=== PATIENT | female | born 1940 | race African-American/Black ===

== ENCOUNTER 2018-02-10 10:02 | Inpatient (IN) | payer MEDICARE, MEDICAID ==
[2018-02-10] VITALS (43 sets, daily range): BP systolic 83–122; BP diastolic 44–76
[~2018-02-10] VITALS: Ht 162.6 cm; Wt 81.6 kg
[~2018-02-10 10:02] MED LIST: CHOL100053 PO; DEXL60CA3 PO; FAMO20TA8 PO; FLUC100T42 PO; FOLI-43 PO; FURO20TA4 PO; LEVPEN SQ; LEVVL SQ; METF500T6 PO; OMEG100T PO; ROSU10TA PO
[2018-02-10] MEDS ORDERED: NORMAL SALINE 0.9% 10 ML SYR ONE (10:04)
[2018-02-10] MEDS ORDERED: VECURONIUM BROMIDE 10 MG/VIAL IV ONE ×2 (10:04→10:30)
[2018-02-10] MEDS ORDERED: ETOMIDATE 2MG/ML 10ML VIAL IV ONE ×2 (10:04→10:30)
[2018-02-10 10:20] LABS: BG BASE EXCESS 3.6 mmol/L (-2.0-2.0); BG CARBOXYHEMOGLOBIN 0.3 % (0.5-1.5); BG DEOXYHEMOGLOBIN 1.2 % (0.0-5.0); BG FRACTION INSPIRED OXYGEN 100; BG HCO3 ACT 26.1 mmol/L (22.0-26.0); BG METHEMOGLOBIN 0.2 % (0.0-1.5); BG OXYGEN SATURATION 98.8 % (92.0-98.5); BG OXYHEMOGLOBIN 98.3 % (94.0-97.0); BG PCO2 32.2 mmHg (35.0-45.0); BG PH 7.526 (7.350-7.450); BG PO2 173.9 mmHg (75.0-100.0); BG SAMPLE SITE RIGHT BRACHIAL; BG TIDAL VOLUME(mL) 500 mL; BG TOTAL HEMOGLOBIN 11.9 g/dL (12.0-18.0); BG VENT MODE VENT - A/C; BG VENT RATE 16 set
[2018-02-10] MEDS ORDERED: SODIUM CHLORIDE 0.9% 1,000 ML IV ONE (10:26)
[2018-02-10 10:29] LABS: HEMATOCRIT. 29.9 % (36.0-48.0); HEMOGLOBIN. 8.7 g/dL (12.0-16.0); MEAN CORPUSCULAR HEMOGLOBIN 25.5 pg (28.0-32.0); MEAN CORPUSCULAR VOLUME 87.6 fL (81.0-99.0); MEAN PLATELET VOLUME 10.7 fl (7.4-10.4); PLATELET 196 x1000/uL (130-400); RED BLOOD CELL COUNT 3.41 mill/uL (4.2-5.4); RED CELL DISTRIBUTION WIDTH 21.7 % (11.6-14.6)
[2018-02-10] MEDS ORDERED: PROPOFOL 10MG/ML 100ML 100 ML IV ONE (10:30)
[2018-02-10] MEDS ORDERED: NOREPINEPHRINE 4 MG in DEXT 5% WATER 246 ML IV ONE ×4 (10:30)
[2018-02-10] MEDS ORDERED: ASPIRIN 300MG SUPP PR ONE (10:30)
[2018-02-10] MEDS ORDERED: LEVOFLOXACIN 500MG PREMIX 100 ML IV ONE (10:30)
[2018-02-10] MEDS ORDERED: CLINDAMYCIN 600 MG in DEXTROSE 5% WATER 50 ML IV ONE (10:30)
[2018-02-10] MEDS ORDERED: VANCOMYCIN 1 G PREMIX 200 ML IV ONE (10:30)
[2018-02-10 10:38] LABS: INR 1.5; PROTHROMBIN TIME 14.9 sec (9.1-11.1)
[2018-02-10 10:39] LABS: CHLORIDE 133 mEq/L (98-107)
[2018-02-10] MEDS ORDERED: ACETAMINOPHEN 650MG SUPP PR STA (10:40)
[2018-02-10 10:43] LABS: ETHANOL BLOOD < 10 mg/dL
[2018-02-10 10:44] LABS: PHOSPHORUS 3.1 mg/dL (2.5-4.9)
[2018-02-10] MEDS ORDERED: SODIUM CHLORIDE 0.9% 1000ML BAG (SEPSIS BOLUS) IV ONE (10:45)
[2018-02-10 10:49] LABS: AMMONIA 25 uMol/L (<32)
[2018-02-10 10:55] LABS: CLARITY URINE TURBID (CLEAR); COLOR URINE DARK YELLOW (YELLOW); KETONES URINE NEGATIVE (NEGATIVE); LEUKOCYTE ESTERASE URINE TRACE (NEGATIVE); NITRITE URINE NEGATIVE (NEGATIVE); OCCULT BLOOD URINE NEGATIVE (NEGATIVE); PROTEIN URINE 1+ (NEGATIVE); SPECIFIC GRAVITY URINE 1.023 (1.005-1.030)
[2018-02-10 11:12] LABS: NUCLEATED RED BLOOD CELLS 1 /100 WBC; PLATELET ESTIMATE NORMAL
[2018-02-10] MEDS ORDERED: INSULIN REGULAR (HUMULIN R) 300UNITS/3ML IV ONE (11:15)
[2018-02-10] MEDS ORDERED: INSULIN REGULAR (DRIP) 100 UNITS in SODIUM CHLORIDE 0.9% 100 ML IV ONE ×2 (11:15→11:45)
[2018-02-10 11:36] LABS: *BENZODIAZEPINES SCREEN URINE NEGATIVE (NEGATIVE)
[2018-02-10 11:37] LABS: *COCAINE SCREEN URINE NEGATIVE (NEGATIVE); CANNABINOID URINE SCREEN NEGATIVE (NEGATIVE); METHADONE URINE SCREEN NEGATIVE (NEGATIVE); OPIATES URINE SCREEN NEGATIVE (NEGATIVE); PHENCYCLIDINE URINE SCREEN NEGATIVE (NEGATIVE)
[2018-02-10 11:38] LABS: *AMPHETAMINES SCREEN URINE NEGATIVE (NEGATIVE)
[2018-02-10 11:42] LABS: *BARBITURATES SCREEN URINE NEGATIVE (NEGATIVE)
[2018-02-10] MEDS ORDERED: INSULIN LISPRO 100 UNITS/ML SUBCUT SCH (13:20)
[2018-02-10] MEDS: PROPOFOL 10MG/ML 100ML 100 ML IV PRN (14:45)
[2018-02-10] MEDS ORDERED: BLOOD SUGAR DIAGNOSTIC STRIP TEST SCH ×2 (16:30→17:00)
[2018-02-10] MEDS: DEXT 5% WATER + KCL 20MEQ/L 1,000 ML IV SCH (16:45)
[2018-02-10] MEDS: AZTREONAM 2 GM in DEXT 5% WATER 100 ML IV SCH (16:45)
[2018-02-10] MEDS ORDERED: CLINDAMYCIN 600 MG in DEXTROSE 5% WATER 50 ML IV SCH (18:00)
[2018-02-10] MEDS ORDERED: VANCOMYCIN 1 G PREMIX 200 ML IV NR (18:30)
[2018-02-10] MEDS: BLOOD SUGAR DIAGNOSTIC STRIP TEST SCH (18:49)
[2018-02-10] MEDS: NOREPINEPHRINE 8 MG in DEXT 5% WATER 492 ML IV PRN (18:51)
[2018-02-10] MEDS: INSULIN LISPRO 100 UNITS/ML SUBCUT SCH (18:57)
[2018-02-10] MEDS: METRONIDAZOLE 500 MG PREMIX 100 ML IV SCH (20:51)
[2018-02-10] MEDS ORDERED: FAMOTIDINE 20MG TABLET PO SCH (21:00)
[2018-02-10] MEDS ORDERED: INSULIN GLARGINE UD 100 UNITS/ML SYR SUBCUT SCH (22:00)
[2018-02-11] VITALS (96 sets, daily range): BP systolic 66–169; BP diastolic 39–90
[2018-02-11] MEDS: PROPOFOL 10MG/ML 100ML 100 ML IV PRN ×2 (00:19→12:49)
[2018-02-11] MEDS: INSULIN LISPRO 100 UNITS/ML SUBCUT SCH ×4 (00:31→17:43)
[2018-02-11] MEDS: BLOOD SUGAR DIAGNOSTIC STRIP TEST SCH ×4 (00:31→17:40)
[2018-02-11] MEDS: INSULIN GLARGINE UD 100 UNITS/ML SYR SUBCUT SCH ×3 (00:32→21:55)
[2018-02-11] MEDS: METRONIDAZOLE 500 MG PREMIX 100 ML IV SCH ×3 (03:49→20:08)
[2018-02-11] MEDS: AZTREONAM 2 GM in DEXT 5% WATER 100 ML IV SCH ×2 (03:49→17:54)
[2018-02-11] MEDS: DEXT 5% WATER + KCL 20MEQ/L 1,000 ML IV SCH ×2 (03:54→04:03)
[2018-02-11 05:58] LABS: HEMATOCRIT. 29.6 % (36.0-48.0); HEMOGLOBIN. 8.8 g/dL (12.0-16.0); MEAN CORPUSCULAR HEMOGLOBIN 25.4 pg (28.0-32.0); MEAN CORPUSCULAR VOLUME 85.7 fL (81.0-99.0); MEAN PLATELET VOLUME 10.4 fl (7.4-10.4); PLATELET 176 x1000/uL (130-400); RED BLOOD CELL COUNT 3.46 mill/uL (4.2-5.4)
[2018-02-11 06:10] LABS: CHLORIDE 124 mEq/L (98-107)
[2018-02-11 06:21] LABS: LDL CHOLESTEROL 45 mg/dL (5-100)
[2018-02-11 06:23] LABS: CREATINE KINASE 35 IU/L (26-192); CREATINE KINASE MB FRACTION 1.8 ng/mL (0.5-3.6); HDL CHOLESTEROL 21 mg/dL (40-59)
[2018-02-11] MEDS: NOREPINEPHRINE 8 MG in DEXT 5% WATER 492 ML IV PRN (06:50)
[2018-02-11 07:56] LABS: BG CARBOXYHEMOGLOBIN 0.4 % (0.5-1.5); BG DEOXYHEMOGLOBIN 3.3 % (0.0-5.0); BG HCO3 ACT 23.3 mmol/L (22.0-26.0); BG METHEMOGLOBIN 0.3 % (0.0-1.5); BG OXYGEN SATURATION 96.7 % (92.0-98.5); BG PCO2 36.5 mmHg (35.0-45.0); BG PH 7.422 (7.350-7.450); BG PO2 93.2 mmHg (75.0-100.0); BG SAMPLE SITE RIGHT RADIAL; BG TIDAL VOLUME(mL) 450 mL; BG TOTAL HEMOGLOBIN 8.6 g/dL (12.0-18.0); BG VENT MODE VENT - A/C; BG VENT RATE 12 set
[2018-02-11] MEDS ORDERED: POTASSIUM CHLORIDE 20MEQ/PACKET PEG NR (08:45)
[2018-02-11] MEDS: PANTOPRAZOLE SODIUM 40 MG/VIAL IV SCH (08:50)
[2018-02-11] MEDS ORDERED: PANTOPRAZOLE SODIUM 40 MG/VIAL IV SCH (09:00)
[2018-02-11 09:07] LABS: NUCLEATED RED BLOOD CELLS 1 /100 WBC; PLATELET ESTIMATE NORMAL
[2018-02-11] MEDS ORDERED: METRONIDAZOLE 500 MG PREMIX 100 ML IV SCH (09:30)
[2018-02-11] MEDS: VANCOMYCIN 1 G PREMIX 200 ML IV SCH (12:47)
[2018-02-11] MEDS ORDERED: IPRATROPIUM/ALBUTEROL 0.5-3(2.5)MG/3ML NEB HHN PRN (14:00)
[2018-02-11] MEDS ORDERED: PROPOFOL 10MG/ML 100ML 100 ML IV PRN (14:15)
[2018-02-11] MEDS: IPRATROPIUM/ALBUTEROL 0.5-3(2.5)MG/3ML NEB HHN SCH ×2 (15:14→20:15)
[2018-02-11] MEDS: POTASSIUM CHLORIDE 20MEQ/PACKET PEG SCH (17:54)
[2018-02-12] VITALS (90 sets, daily range): BP systolic 83–155; BP diastolic 47–94
[2018-02-12] MEDS: IPRATROPIUM/ALBUTEROL 0.5-3(2.5)MG/3ML NEB HHN SCH ×7 (00:09→23:43)
[2018-02-12] MEDS: INSULIN LISPRO 100 UNITS/ML SUBCUT SCH ×4 (00:28→18:05)
[2018-02-12] MEDS: BLOOD SUGAR DIAGNOSTIC STRIP TEST SCH ×4 (00:29→18:04)
[2018-02-12] MEDS: NOREPINEPHRINE 8 MG in DEXT 5% WATER 492 ML IV PRN ×2 (00:33→17:44)
[2018-02-12] MEDS: DEXT 5% WATER + KCL 20MEQ/L 1,000 ML IV SCH (03:03)
[2018-02-12] MEDS: METRONIDAZOLE 500 MG PREMIX 100 ML IV SCH ×2 (03:04→12:41)
[2018-02-12] MEDS: AZTREONAM 2 GM in DEXT 5% WATER 100 ML IV SCH ×2 (05:01→17:39)
[2018-02-12 05:53] LABS: HEMATOCRIT. 28.7 % (36.0-48.0); HEMOGLOBIN. 8.8 g/dL (12.0-16.0); MEAN CORPUSCULAR HEMOGLOBIN 25.6 pg (28.0-32.0); MEAN CORPUSCULAR VOLUME 83.3 fL (81.0-99.0); MEAN PLATELET VOLUME 9.8 fl (7.4-10.4); PLATELET 173 x1000/uL (130-400); RED BLOOD CELL COUNT 3.44 mill/uL (4.2-5.4); RED CELL DISTRIBUTION WIDTH 20.4 % (11.6-14.6)
[2018-02-12 06:00] LABS: CHLORIDE 120 mEq/L (98-107)
[2018-02-12] MEDS: VANCOMYCIN 1 G PREMIX 200 ML IV SCH (06:38)
[2018-02-12] MEDS: POTASSIUM CHLORIDE 20MEQ/PACKET PEG SCH (06:39)
[2018-02-12] MEDS ORDERED: LACTULOSE 20G/30ML UDC PO SCH (07:45)
[2018-02-12 07:56] LABS: PLATELET ESTIMATE NORMAL
[2018-02-12] MEDS: PANTOPRAZOLE SODIUM 40 MG/VIAL IV SCH (08:17)
[2018-02-12] MEDS: ACETAMINOPHEN 650MG/20.3ML UDC PO PRN (08:18)
[2018-02-12] MEDS: MIDODRINE HCL 2.5MG TABLET GT SCH ×3 (08:40→17:39)
[2018-02-12 08:50] LABS: BG BASE EXCESS 0.1 mmol/L (-2.0-2.0); BG CARBOXYHEMOGLOBIN 0.3 % (0.5-1.5); BG DEOXYHEMOGLOBIN 2.5 % (0.0-5.0); BG HCO3 ACT 23.7 mmol/L (22.0-26.0); BG METHEMOGLOBIN 0.3 % (0.0-1.5); BG OXYGEN SATURATION 97.5 % (92.0-98.5); BG OXYHEMOGLOBIN 96.9 % (94.0-97.0); BG PCO2 34.1 mmHg (35.0-45.0); BG PO2 92.2 mmHg (75.0-100.0); BG SAMPLE SITE RIGHT RADIAL; BG TIDAL VOLUME(mL) 450 mL; BG VENT MODE VENT - A/C; BG VENT RATE 12 set
[2018-02-12] MEDS: INSULIN GLARGINE UD 100 UNITS/ML SYR SUBCUT SCH ×2 (10:00→11:00)
[2018-02-12] MEDS ORDERED: METOCLOPRAMIDE HCL 10MG/2ML VIAL IV SCH (14:00)
[2018-02-12] MEDS ORDERED: NA PHOS,M-B/NA PHOS,DI-BA ENEMA 118ML PR NR (17:15)
[2018-02-12] MEDS: DEXTROSE 5% WATER 1,000 ML IV SCH (17:44)
[2018-02-13] VITALS (60 sets, daily range): BP systolic 78–134; BP diastolic 45–78
[2018-02-13] MEDS: BLOOD SUGAR DIAGNOSTIC STRIP TEST SCH ×4 (00:19→18:45)
[2018-02-13] MEDS: VANCOMYCIN 1 G PREMIX 200 ML IV SCH ×2 (00:19→20:13)
[2018-02-13] MEDS: METRONIDAZOLE 500 MG PREMIX 100 ML IV SCH ×4 (00:19→22:11)
[2018-02-13] MEDS: INSULIN GLARGINE UD 100 UNITS/ML SYR SUBCUT SCH ×3 (00:21→22:15)
[2018-02-13] MEDS: INSULIN LISPRO 100 UNITS/ML SUBCUT SCH ×4 (00:22→18:49)
[2018-02-13] MEDS: IPRATROPIUM/ALBUTEROL 0.5-3(2.5)MG/3ML NEB HHN SCH ×5 (04:19→20:13)
[2018-02-13 05:38] LABS: HEMATOCRIT. 28.3 % (36.0-48.0); HEMOGLOBIN. 8.6 g/dL (12.0-16.0); MEAN CORPUSCULAR HEMOGLOBIN 25.6 pg (28.0-32.0); MEAN CORPUSCULAR VOLUME 84.1 fL (81.0-99.0); MEAN PLATELET VOLUME 10.8 fl (7.4-10.4); PLATELET 165 x1000/uL (130-400); RED BLOOD CELL COUNT 3.37 mill/uL (4.2-5.4); RED CELL DISTRIBUTION WIDTH 20.9 % (11.6-14.6)
[2018-02-13 05:54] LABS: CHLORIDE 113 mEq/L (98-107)
[2018-02-13] MEDS: DEXTROSE 5% WATER 1,000 ML IV SCH (06:16)
[2018-02-13] MEDS: AZTREONAM 2 GM in DEXT 5% WATER 100 ML IV SCH ×2 (06:58→17:45)
[2018-02-13 07:08] LABS: NUCLEATED RED BLOOD CELLS 2 /100 WBC; PLATELET ESTIMATE NORMAL
[2018-02-13 08:38] LABS: BG BASE EXCESS -1.7 mmol/L (-2.0-2.0); BG CARBOXYHEMOGLOBIN 0.1 % (0.5-1.5); BG DEOXYHEMOGLOBIN 4.1 % (0.0-5.0); BG FRACTION INSPIRED OXYGEN 40; BG HCO3 ACT 22.3 mmol/L (22.0-26.0); BG METHEMOGLOBIN 0.2 % (0.0-1.5); BG OXYGEN SATURATION 95.9 % (92.0-98.5); BG OXYHEMOGLOBIN 95.6 % (94.0-97.0); BG PCO2 34.3 mmHg (35.0-45.0); BG PO2 86.7 mmHg (75.0-100.0); BG SAMPLE SITE RIGHT RADIAL; BG TIDAL VOLUME(mL) 450 mL; BG TOTAL HEMOGLOBIN 9.4 g/dL (12.0-18.0); BG VENT MODE VENT - A/C; BG VENT RATE 12 set
[2018-02-13] MEDS: PANTOPRAZOLE SODIUM 40 MG/VIAL IV SCH (09:24)
[2018-02-13] MEDS: MIDODRINE HCL 2.5MG TABLET GT SCH ×3 (09:24→18:26)
[2018-02-13] MEDS: ACETAMINOPHEN 650MG/20.3ML UDC PO PRN (09:25)
[2018-02-13] MEDS ORDERED: MIDODRINE HCL 2.5MG TABLET PO NR (14:45)
[2018-02-13] MEDS: SODIUM CHLORIDE 0.9% 200 ML IV NR ×2 (14:45→14:58)
[2018-02-13] MEDS: ACETYLCYSTEINE 100MG/ML 10% VIAL 4ML INH SCH (14:57)
[2018-02-14] VITALS (33 sets, daily range): BP systolic 80–130; BP diastolic 45–74
[2018-02-14] MEDS: ACETYLCYSTEINE 100MG/ML 10% VIAL 4ML INH SCH ×2 (00:14→07:27)
[2018-02-14] MEDS: IPRATROPIUM/ALBUTEROL 0.5-3(2.5)MG/3ML NEB HHN SCH ×6 (00:14→20:16)
[2018-02-14] MEDS: SODIUM CHLORIDE 0.9% 200 ML IV NR (00:50)
[2018-02-14] MEDS: BLOOD SUGAR DIAGNOSTIC STRIP TEST SCH ×5 (00:50→23:17)
[2018-02-14] MEDS: AZTREONAM 2 GM in DEXT 5% WATER 100 ML IV SCH ×2 (03:38→15:38)
[2018-02-14] MEDS: METRONIDAZOLE 500 MG PREMIX 100 ML IV SCH ×3 (03:40→22:10)
[2018-02-14] MEDS: INSULIN LISPRO 100 UNITS/ML SUBCUT SCH ×5 (05:23→23:17)
[2018-02-14 06:51] LABS: HEMOGLOBIN. 8.5 g/dL (12.0-16.0); MEAN CORPUSCULAR HEMOGLOBIN 26.2 pg (28.0-32.0); MEAN CORPUSCULAR VOLUME 83.4 fL (81.0-99.0); MEAN PLATELET VOLUME 10.2 fl (7.4-10.4); PLATELET 177 x1000/uL (130-400); RED BLOOD CELL COUNT 3.23 mill/uL (4.2-5.4)
[2018-02-14 06:53] LABS: CHLORIDE 112 mEq/L (98-107)
[2018-02-14 07:05] LABS: PHOSPHORUS 1.9 mg/dL (2.5-4.9)
[2018-02-14 07:23] LABS: BG BASE EXCESS -0.5 mmol/L (-2.0-2.0); BG CARBOXYHEMOGLOBIN 0.3 % (0.5-1.5); BG DEOXYHEMOGLOBIN 3.1 % (0.0-5.0); BG FRACTION INSPIRED OXYGEN 40; BG HCO3 ACT 23.2 mmol/L (22.0-26.0); BG METHEMOGLOBIN 0.2 % (0.0-1.5); BG OXYGEN SATURATION 96.9 % (92.0-98.5); BG OXYHEMOGLOBIN 96.4 % (94.0-97.0); BG PCO2 33.9 mmHg (35.0-45.0); BG PH 7.453 (7.350-7.450); BG PO2 85.9 mmHg (75.0-100.0); BG SAMPLE SITE RIGHT RADIAL; BG TIDAL VOLUME(mL) 450 mL; BG TOTAL HEMOGLOBIN 8.8 g/dL (12.0-18.0); BG VENT MODE VENT - A/C; BG VENT RATE 12 set
[2018-02-14] MEDS: PANTOPRAZOLE SODIUM 40 MG/VIAL IV SCH (08:34)
[2018-02-14] MEDS: MIDODRINE HCL 2.5MG TABLET GT SCH ×3 (08:35→16:11)
[2018-02-14] MEDS ORDERED: POTASSIUM PHOS,M-BASIC-D-BASIC 15 MMOL in DEXT 5% WATER 245 ML IV SCH (09:00)
[2018-02-14 09:19] LABS: PLATELET ESTIMATE NORMAL
[2018-02-14] MEDS: INSULIN GLARGINE UD 100 UNITS/ML SYR SUBCUT SCH ×2 (11:34→23:24)
[2018-02-14] MEDS ORDERED: ALPRAZOLAM 0.25 MG TABLET PO PRN (12:00)
[2018-02-14] MEDS: VANCOMYCIN 1 G PREMIX 200 ML IV SCH (13:05)
[2018-02-15] VITALS (40 sets, daily range): BP systolic 91–140; BP diastolic 51–75
[2018-02-15] MEDS: IPRATROPIUM/ALBUTEROL 0.5-3(2.5)MG/3ML NEB HHN SCH ×5 (00:23→20:18)
[2018-02-15] MEDS: AZTREONAM 2 GM in DEXT 5% WATER 100 ML IV SCH ×2 (04:56→16:49)
[2018-02-15] MEDS: METRONIDAZOLE 500 MG PREMIX 100 ML IV SCH ×3 (04:56→20:33)
[2018-02-15] MEDS: BLOOD SUGAR DIAGNOSTIC STRIP TEST SCH ×3 (05:11→17:17)
[2018-02-15] MEDS: INSULIN LISPRO 100 UNITS/ML SUBCUT SCH ×3 (05:25→17:17)
[2018-02-15] MEDS: VANCOMYCIN 1 G PREMIX 200 ML IV SCH (05:32)
[2018-02-15 05:50] LABS: BASOPHILS % 0.3 % (0.0-2.0); EOSINOPHILS % 0.9 % (0.0-5.0); HEMATOCRIT. 26.6 % (36.0-48.0); HEMOGLOBIN. 8.3 g/dL (12.0-16.0); LYMPHOCYTES % 9.6 % (20.0-50.0); MEAN CORPUSCULAR HEMOGLOBIN 25.8 pg (28.0-32.0); MEAN CORPUSCULAR VOLUME 82.9 fL (81.0-99.0); MEAN PLATELET VOLUME 9.6 fl (7.4-10.4); MONOCYTES % 2.6 % (2.0-8.0); NEUTROPHILS % 86.6 % (40.0-76.0); PLATELET 188 x1000/uL (130-400); RED CELL DISTRIBUTION WIDTH 20.1 % (11.6-14.6)
[2018-02-15 06:01] LABS: CHLORIDE 111 mEq/L (98-107)
[2018-02-15 06:09] LABS: PHOSPHORUS 2.7 mg/dL (2.5-4.9)
[2018-02-15 09:14] LABS: BG BASE EXCESS -0.9 mmol/L (-2.0-2.0); BG CARBOXYHEMOGLOBIN 0.3 % (0.5-1.5); BG DEOXYHEMOGLOBIN 2.1 % (0.0-5.0); BG FRACTION INSPIRED OXYGEN 40; BG METHEMOGLOBIN 0.3 % (0.0-1.5); BG OXYGEN SATURATION 97.9 % (92.0-98.5); BG OXYHEMOGLOBIN 97.3 % (94.0-97.0); BG PCO2 34.7 mmHg (35.0-45.0); BG PH 7.439 (7.350-7.450); BG PO2 107.4 mmHg (75.0-100.0); BG PRESSURE SUPPORT 12; BG SAMPLE SITE RIGHT RADIAL; BG TOTAL HEMOGLOBIN 8.9 g/dL (12.0-18.0); BG VENT MODE VENT - CPAP
[2018-02-15] MEDS: PANTOPRAZOLE SODIUM 40 MG/VIAL IV SCH (09:26)
[2018-02-15] MEDS: INSULIN GLARGINE UD 100 UNITS/ML SYR SUBCUT SCH ×2 (09:27→21:46)
[2018-02-15] MEDS: MIDODRINE HCL 2.5MG TABLET GT SCH ×3 (09:30→16:49)
[2018-02-15] MEDS: ACETAMINOPHEN 650MG/20.3ML UDC PO PRN (12:57)
[2018-02-15] MEDS ORDERED: LIDOCAINE HCL 1% 10 MG/ML 10ML VIAL ONE (14:49)
[2018-02-15] MEDS: DEXTROSE 50% WATER 50ML SYRINGE IV PRN (16:59)
[2018-02-16] VITALS (35 sets, daily range): BP systolic 93–132; BP diastolic 51–83
[2018-02-16] MEDS: IPRATROPIUM/ALBUTEROL 0.5-3(2.5)MG/3ML NEB HHN SCH ×6 (00:10→21:23)
[2018-02-16] MEDS: METRONIDAZOLE 500 MG PREMIX 100 ML IV SCH ×3 (03:51→20:50)
[2018-02-16] MEDS: AZTREONAM 2 GM in DEXT 5% WATER 100 ML IV SCH ×2 (05:23→17:03)
[2018-02-16 05:39] LABS: BASOPHILS % 0.3 % (0.0-2.0); EOSINOPHILS % 0.9 % (0.0-5.0); HEMATOCRIT. 27.7 % (36.0-48.0); HEMOGLOBIN. 8.6 g/dL (12.0-16.0); LYMPHOCYTES % 9.6 % (20.0-50.0); MEAN CORPUSCULAR VOLUME 83.5 fL (81.0-99.0); MEAN PLATELET VOLUME 8.9 fl (7.4-10.4); MONOCYTES % 3.5 % (2.0-8.0); NEUTROPHILS % 85.7 % (40.0-76.0); PLATELET 267 x1000/uL (130-400); RED BLOOD CELL COUNT 3.31 mill/uL (4.2-5.4); RED CELL DISTRIBUTION WIDTH 20.7 % (11.6-14.6)
[2018-02-16 05:44] LABS: CHLORIDE 110 mEq/L (98-107)
[2018-02-16] MEDS: INSULIN LISPRO 100 UNITS/ML SUBCUT SCH ×4 (06:00→17:40)
[2018-02-16] MEDS: BLOOD SUGAR DIAGNOSTIC STRIP TEST SCH ×4 (06:40→17:40)
[2018-02-16 08:14] LABS: BG BASE EXCESS 1.7 mmol/L (-2.0-2.0); BG CARBOXYHEMOGLOBIN 0.3 % (0.5-1.5); BG DEOXYHEMOGLOBIN 2.6 % (0.0-5.0); BG FRACTION INSPIRED OXYGEN 32; BG METHEMOGLOBIN 0.1 % (0.0-1.5); BG OXYGEN SATURATION 97.4 % (92.0-98.5); BG PCO2 39.4 mmHg (35.0-45.0); BG PH 7.437 (7.350-7.450); BG PO2 79.1 mmHg (75.0-100.0); BG SAMPLE SITE RIGHT RADIAL; BG TOTAL HEMOGLOBIN 8.7 g/dL (12.0-18.0); BG VENT MODE NASAL CANNULA
[2018-02-16] MEDS: MIDODRINE HCL 2.5MG TABLET GT SCH ×3 (08:39→17:03)
[2018-02-16] MEDS: PANTOPRAZOLE SODIUM 40 MG/VIAL IV SCH (08:39)
[2018-02-16] MEDS: INSULIN GLARGINE UD 100 UNITS/ML SYR SUBCUT SCH ×2 (10:00→21:38)
[2018-02-16] MEDS: VANCOMYCIN 1 G PREMIX 200 ML IV SCH (10:58)
[2018-02-16] MEDS: DEXTROSE 50% WATER 50ML SYRINGE IV PRN (10:58)
[2018-02-16] MEDS: ACETYLCYSTEINE 100MG/ML 10% VIAL 4ML INH SCH (12:23)
[2018-02-17] VITALS (31 sets, daily range): BP systolic 86–136; BP diastolic 51–78
[2018-02-17] MEDS: ACETYLCYSTEINE 100MG/ML 10% VIAL 4ML INH SCH ×3 (01:15→15:35)
[2018-02-17] MEDS: IPRATROPIUM/ALBUTEROL 0.5-3(2.5)MG/3ML NEB HHN SCH ×5 (01:15→20:09)
[2018-02-17] MEDS: METRONIDAZOLE 500 MG PREMIX 100 ML IV SCH ×3 (03:35→19:56)
[2018-02-17] MEDS: AZTREONAM 2 GM in DEXT 5% WATER 100 ML IV SCH ×2 (04:14→16:46)
[2018-02-17] MEDS: BLOOD SUGAR DIAGNOSTIC STRIP TEST SCH ×5 (05:44→23:29)
[2018-02-17] MEDS: INSULIN LISPRO 100 UNITS/ML SUBCUT SCH ×5 (05:44→23:29)
[2018-02-17 06:16] LABS: CHLORIDE 112 mEq/L (98-107)
[2018-02-17 06:26] LABS: BASOPHILS % 0.5 % (0.0-2.0); EOSINOPHILS % 0.9 % (0.0-5.0); HEMATOCRIT. 25.6 % (36.0-48.0); LYMPHOCYTES % 8.9 % (20.0-50.0); MEAN CORPUSCULAR HEMOGLOBIN 26.3 pg (28.0-32.0); MEAN CORPUSCULAR VOLUME 83.9 fL (81.0-99.0); MEAN PLATELET VOLUME 8.8 fl (7.4-10.4); MONOCYTES % 3.1 % (2.0-8.0); NEUTROPHILS % 86.6 % (40.0-76.0); PLATELET 310 x1000/uL (130-400); RED BLOOD CELL COUNT 3.05 mill/uL (4.2-5.4); RED CELL DISTRIBUTION WIDTH 20.1 % (11.6-14.6)
[2018-02-17] MEDS: PANTOPRAZOLE SODIUM 40 MG/VIAL IV SCH (08:56)
[2018-02-17] MEDS: MIDODRINE HCL 2.5MG TABLET GT SCH ×3 (08:56→18:09)
[2018-02-17] MEDS ORDERED: FUROSEMIDE 40MG/4ML VIAL IVP NR (09:30)
[2018-02-17] MEDS ORDERED: POTASSIUM CHLORIDE 20MEQ/PACKET NG NR (09:35)
[2018-02-17] MEDS: INSULIN GLARGINE UD 100 UNITS/ML SYR SUBCUT SCH ×2 (10:00→22:00)
[2018-02-17] MEDS ORDERED: ETOMIDATE 2MG/ML 10ML VIAL IV ONE (10:15)
[2018-02-17] MEDS ORDERED: SUCCINYLCHOLINE CHLORIDE 200MG/10ML VIAL IV ONE (10:15)
[2018-02-17 11:29] LABS: BG BASE EXCESS -1.7 mmol/L (-2.0-2.0); BG CARBOXYHEMOGLOBIN 0.3 % (0.5-1.5); BG DEOXYHEMOGLOBIN 0.5 % (0.0-5.0); BG METHEMOGLOBIN 0.3 % (0.0-1.5); BG OXYGEN SATURATION 99.5 % (92.0-98.5); BG OXYHEMOGLOBIN 98.9 % (94.0-97.0); BG PCO2 33.5 mmHg (35.0-45.0); BG PH 7.436 (7.350-7.450); BG PO2 299.2 mmHg (75.0-100.0); BG SAMPLE SITE RIGHT RADIAL; BG TIDAL VOLUME(mL) 500 mL; BG TOTAL HEMOGLOBIN 10.4 g/dL (12.0-18.0); BG VENT MODE VENT - A/C; BG VENT RATE 14 set
[2018-02-17] MEDS ORDERED: LORAZEPAM 2MG/ML CPJ IV PRN (11:45)
[2018-02-17] MEDS: DEXTROSE 50% WATER 50ML SYRINGE IV PRN ×2 (12:05→23:29)
[2018-02-17 12:18] LABS: HEMOGLOBIN 8.7 g/dL (12.0-16.0)
[2018-02-17] MEDS: VANCOMYCIN 1 G PREMIX 200 ML IV SCH (12:20)
[2018-02-17 12:32] LABS: TOTAL IRON BINDING CAPACITY 168 ug/dL (250-450)
[2018-02-18] VITALS (43 sets, daily range): BP systolic 82–117; BP diastolic 50–80
[2018-02-18] MEDS: IPRATROPIUM/ALBUTEROL 0.5-3(2.5)MG/3ML NEB HHN SCH ×6 (00:12→21:12)
[2018-02-18] MEDS: ACETYLCYSTEINE 100MG/ML 10% VIAL 4ML INH SCH ×4 (00:12→16:44)
[2018-02-18] MEDS: DEXT 5%/0.45% NACL KCL 20MEQ/L 1,000 ML IV SCH ×2 (00:41→21:30)
[2018-02-18] MEDS: DEXTROSE 50% WATER 50ML SYRINGE IV PRN ×2 (05:08→17:23)
[2018-02-18] MEDS: BLOOD SUGAR DIAGNOSTIC STRIP TEST SCH ×4 (05:09→23:44)
[2018-02-18] MEDS: INSULIN LISPRO 100 UNITS/ML SUBCUT SCH ×4 (05:09→23:44)
[2018-02-18 05:12] LABS: BASOPHILS % 0.3 % (0.0-2.0); EOSINOPHILS % 0.8 % (0.0-5.0); HEMOGLOBIN. 8.4 g/dL (12.0-16.0); LYMPHOCYTES % 12.5 % (20.0-50.0); MEAN CORPUSCULAR HEMOGLOBIN 25.9 pg (28.0-32.0); MEAN CORPUSCULAR VOLUME 83.3 fL (81.0-99.0); MEAN PLATELET VOLUME 8.6 fl (7.4-10.4); MONOCYTES % 3.1 % (2.0-8.0); NEUTROPHILS % 83.3 % (40.0-76.0); PLATELET 380 x1000/uL (130-400); RED BLOOD CELL COUNT 3.25 mill/uL (4.2-5.4); RED CELL DISTRIBUTION WIDTH 20.9 % (11.6-14.6)
[2018-02-18 05:15] LABS: CHLORIDE 111 mEq/L (98-107)
[2018-02-18] MEDS: METRONIDAZOLE 500 MG PREMIX 100 ML IV SCH ×3 (05:41→19:36)
[2018-02-18] MEDS: AZTREONAM 2 GM in DEXT 5% WATER 100 ML IV SCH ×2 (05:41→17:23)
[2018-02-18 07:42] LABS: BG BASE EXCESS 1.6 mmol/L (-2.0-2.0); BG CARBOXYHEMOGLOBIN 0.1 % (0.5-1.5); BG DEOXYHEMOGLOBIN 2.4 % (0.0-5.0); BG FRACTION INSPIRED OXYGEN 40; BG HCO3 ACT 25.2 mmol/L (22.0-26.0); BG METHEMOGLOBIN 0.1 % (0.0-1.5); BG OXYGEN SATURATION 97.6 % (92.0-98.5); BG OXYHEMOGLOBIN 97.4 % (94.0-97.0); BG PH 7.475 (7.350-7.450); BG PO2 94.2 mmHg (75.0-100.0); BG SAMPLE SITE RIGHT RADIAL; BG TIDAL VOLUME(mL) 500 mL; BG TOTAL HEMOGLOBIN 8.1 g/dL (12.0-18.0); BG VENT MODE VENT - A/C; BG VENT RATE 12 set
[2018-02-18] MEDS: MIDODRINE HCL 2.5MG TABLET GT SCH ×3 (09:02→17:23)
[2018-02-18] MEDS: PANTOPRAZOLE SODIUM 40 MG/VIAL IV SCH (09:02)
[2018-02-18] MEDS: INSULIN GLARGINE UD 100 UNITS/ML SYR SUBCUT SCH (10:00)
[2018-02-18] MEDS: VANCOMYCIN 1 G PREMIX 200 ML IV SCH (10:56)
[2018-02-19] VITALS (37 sets, daily range): BP systolic 91–127; BP diastolic 52–77
[2018-02-19] MEDS: IPRATROPIUM/ALBUTEROL 0.5-3(2.5)MG/3ML NEB HHN SCH ×5 (01:12→20:20)
[2018-02-19] MEDS: METRONIDAZOLE 500 MG PREMIX 100 ML IV SCH ×3 (05:04→19:33)
[2018-02-19] MEDS: INSULIN LISPRO 100 UNITS/ML SUBCUT SCH ×4 (06:00→23:48)
[2018-02-19] MEDS: AZTREONAM 2 GM in DEXT 5% WATER 100 ML IV SCH ×2 (06:08→16:29)
[2018-02-19 06:12] LABS: BASOPHILS % 0.4 % (0.0-2.0); EOSINOPHILS % 0.6 % (0.0-5.0); HEMATOCRIT. 27.2 % (36.0-48.0); HEMOGLOBIN. 8.4 g/dL (12.0-16.0); LYMPHOCYTES % 9.2 % (20.0-50.0); MEAN CORPUSCULAR HEMOGLOBIN 25.9 pg (28.0-32.0); MEAN CORPUSCULAR VOLUME 83.7 fL (81.0-99.0); MONOCYTES % 2.6 % (2.0-8.0); NEUTROPHILS % 87.2 % (40.0-76.0); PLATELET 495 x1000/uL (130-400); RED BLOOD CELL COUNT 3.25 mill/uL (4.2-5.4); RED CELL DISTRIBUTION WIDTH 21.2 % (11.6-14.6)
[2018-02-19] MEDS: BLOOD SUGAR DIAGNOSTIC STRIP TEST SCH ×4 (06:23→23:48)
[2018-02-19 06:25] LABS: CHLORIDE 110 mEq/L (98-107)
[2018-02-19 09:01] LABS: BG BASE EXCESS -0.8 mmol/L (-2.0-2.0); BG CARBOXYHEMOGLOBIN 0.3 % (0.5-1.5); BG DEOXYHEMOGLOBIN 3.2 % (0.0-5.0); BG FRACTION INSPIRED OXYGEN 40; BG HCO3 ACT 22.6 mmol/L (22.0-26.0); BG METHEMOGLOBIN 0.3 % (0.0-1.5); BG OXYGEN SATURATION 96.8 % (92.0-98.5); BG OXYHEMOGLOBIN 96.2 % (94.0-97.0); BG PCO2 32.1 mmHg (35.0-45.0); BG PH 7.465 (7.350-7.450); BG PO2 88.8 mmHg (75.0-100.0); BG SAMPLE SITE RIGHT RADIAL; BG TIDAL VOLUME(mL) 500 mL; BG TOTAL HEMOGLOBIN 8.3 g/dL (12.0-18.0); BG VENT MODE VENT - A/C; BG VENT RATE 12 set
[2018-02-19] MEDS: PANTOPRAZOLE SODIUM 40 MG/VIAL IV SCH (09:20)
[2018-02-19] MEDS: ACETYLCYSTEINE 100MG/ML 10% VIAL 4ML INH SCH ×2 (09:20→17:53)
[2018-02-19] MEDS: MIDODRINE HCL 2.5MG TABLET GT SCH ×3 (09:21→16:29)
[2018-02-19] MEDS ORDERED: LORAZEPAM 2MG/ML CPJ IV PRN (11:45)
[2018-02-19] MEDS: VANCOMYCIN 1 G PREMIX 200 ML IV SCH (12:55)
[2018-02-19] MEDS: DEXT 5%/0.45% NACL KCL 20MEQ/L 1,000 ML IV SCH (17:00)
[2018-02-20] VITALS (40 sets, daily range): BP systolic 83–143; BP diastolic 50–82
[2018-02-20] MEDS: IPRATROPIUM/ALBUTEROL 0.5-3(2.5)MG/3ML NEB HHN SCH ×6 (00:15→20:37)
[2018-02-20] MEDS: ACETYLCYSTEINE 100MG/ML 10% VIAL 4ML INH SCH ×3 (00:15→15:59)
[2018-02-20] MEDS: METRONIDAZOLE 500 MG PREMIX 100 ML IV SCH ×3 (03:46→20:25)
[2018-02-20] MEDS: AZTREONAM 2 GM in DEXT 5% WATER 100 ML IV SCH ×2 (05:31→17:16)
[2018-02-20 05:43] LABS: BASOPHILS % 0.2 % (0.0-2.0); EOSINOPHILS % 0.8 % (0.0-5.0); HEMATOCRIT. 24.6 % (36.0-48.0); HEMOGLOBIN. 7.7 g/dL (12.0-16.0); MEAN CORPUSCULAR HEMOGLOBIN 26.5 pg (28.0-32.0); MEAN CORPUSCULAR VOLUME 84.5 fL (81.0-99.0); MEAN PLATELET VOLUME 7.9 fl (7.4-10.4); MONOCYTES % 2.2 % (2.0-8.0); NEUTROPHILS % 87.8 % (40.0-76.0); PLATELET 536 x1000/uL (130-400); RED BLOOD CELL COUNT 2.91 mill/uL (4.2-5.4)
[2018-02-20 05:48] LABS: CHLORIDE 108 mEq/L (98-107)
[2018-02-20] MEDS: BLOOD SUGAR DIAGNOSTIC STRIP TEST SCH ×3 (06:18→17:16)
[2018-02-20] MEDS: INSULIN LISPRO 100 UNITS/ML SUBCUT SCH ×3 (06:27→19:33)
[2018-02-20 08:25] LABS: BG BASE EXCESS 1.9 mmol/L (-2.0-2.0); BG CARBOXYHEMOGLOBIN 0.3 % (0.5-1.5); BG DEOXYHEMOGLOBIN 2.1 % (0.0-5.0); BG FRACTION INSPIRED OXYGEN 40; BG HCO3 ACT 25.8 mmol/L (22.0-26.0); BG METHEMOGLOBIN 0.4 % (0.0-1.5); BG OXYGEN SATURATION 97.9 % (92.0-98.5); BG OXYHEMOGLOBIN 97.2 % (94.0-97.0); BG PCO2 36.9 mmHg (35.0-45.0); BG PH 7.462 (7.350-7.450); BG PO2 97.8 mmHg (75.0-100.0); BG SAMPLE SITE RIGHT RADIAL; BG TIDAL VOLUME(mL) 500 mL; BG TOTAL HEMOGLOBIN 8.2 g/dL (12.0-18.0); BG VENT MODE VENT - A/C; BG VENT RATE 12 set
[2018-02-20 09:36] LABS: HEMATOCRIT 26.6 % (36.0-48.0); HEMOGLOBIN 8.2 g/dL (12.0-16.0)
[2018-02-20] MEDS: PANTOPRAZOLE SODIUM 40 MG/VIAL IV SCH (09:59)
[2018-02-20] MEDS: MIDODRINE HCL 2.5MG TABLET GT SCH ×3 (09:59→17:16)
[2018-02-20] MEDS: VANCOMYCIN 1 G PREMIX 200 ML IV SCH (12:24)
[2018-02-20] MEDS: DEXT 5%/0.45% NACL KCL 20MEQ/L 1,000 ML IV SCH (17:17)
[2018-02-21] VITALS (25 sets, daily range): BP systolic 93–146; BP diastolic 56–91
[2018-02-21] MEDS: ACETYLCYSTEINE 100MG/ML 10% VIAL 4ML INH SCH ×3 (00:16→11:30)
[2018-02-21] MEDS: IPRATROPIUM/ALBUTEROL 0.5-3(2.5)MG/3ML NEB HHN SCH ×6 (00:16→20:37)
[2018-02-21] MEDS: BLOOD SUGAR DIAGNOSTIC STRIP TEST SCH ×5 (00:18→23:40)
[2018-02-21] MEDS: INSULIN LISPRO 100 UNITS/ML SUBCUT SCH ×5 (00:22→23:40)
[2018-02-21] MEDS: METRONIDAZOLE 500 MG PREMIX 100 ML IV SCH ×3 (04:00→19:41)
[2018-02-21] MEDS: AZTREONAM 2 GM in DEXT 5% WATER 100 ML IV SCH ×2 (05:22→17:01)
[2018-02-21 06:14] LABS: HEMATOCRIT. 26.6 % (36.0-48.0); HEMOGLOBIN. 8.3 g/dL (12.0-16.0); MEAN CORPUSCULAR HEMOGLOBIN 26.4 pg (28.0-32.0); RED BLOOD CELL COUNT 3.13 mill/uL (4.2-5.4); RED CELL DISTRIBUTION WIDTH 21.3 % (11.6-14.6)
[2018-02-21 06:23] LABS: CHLORIDE 108 mEq/L (98-107)
[2018-02-21 06:31] LABS: PHOSPHORUS 1.8 mg/dL (2.5-4.9)
[2018-02-21 08:34] LABS: BG BASE EXCESS 0.8 mmol/L (-2.0-2.0); BG CARBOXYHEMOGLOBIN 0.3 % (0.5-1.5); BG DEOXYHEMOGLOBIN 1.7 % (0.0-5.0); BG HCO3 ACT 24.5 mmol/L (22.0-26.0); BG METHEMOGLOBIN 0.2 % (0.0-1.5); BG OXYGEN SATURATION 98.3 % (92.0-98.5); BG OXYHEMOGLOBIN 97.8 % (94.0-97.0); BG PCO2 35.3 mmHg (35.0-45.0); BG PO2 107.2 mmHg (75.0-100.0); BG PRESSURE SUPPORT 12; BG SAMPLE SITE RIGHT BRACHIAL; BG TIDAL VOLUME(mL) 500 mL; BG TOTAL HEMOGLOBIN 8.6 g/dL (12.0-18.0); BG VENT MODE VENT - SIMV; BG VENT RATE 8 set
[2018-02-21] MEDS ORDERED: FUROSEMIDE 40MG/4ML VIAL IVP NR (08:45)
[2018-02-21] MEDS: MIDODRINE HCL 2.5MG TABLET GT SCH ×3 (09:00→17:02)
[2018-02-21] MEDS: PANTOPRAZOLE SODIUM 40 MG/VIAL IV SCH (09:00)
[2018-02-21] MEDS ORDERED: MAGNESIUM SULFATE 2 GM in SODIUM CHLORIDE 0.9% 100 ML IV SCH ×2 (09:30→11:30)
[2018-02-21] MEDS ORDERED: SODIUM POLYSTYRENE SULFONATE 15 G/60 ML BOT PO NR (10:00)
[2018-02-21] MEDS ORDERED: MAGNESIUM 2 G PREMIX 50 ML IV NR (10:00)
[2018-02-21] MEDS: VANCOMYCIN 1 G PREMIX 200 ML IV SCH (10:45)
[2018-02-21] MEDS ORDERED: SODIUM PHOS,M-BASIC-D-BASIC 15 MM in DEXT 5% WATER 245 ML IV NR (11:00)
[2018-02-21 11:47] LABS: PLATELET 528 x1000/uL (130-400)
[2018-02-21 11:50] LABS: PLATELET ESTIMATE INCREASED
[2018-02-21] MEDS: INSULIN GLARGINE UD 100 UNITS/ML SYR SUBCUT SCH ×2 (12:29→21:51)
[2018-02-21 16:40] LABS: INR 1.1; PROTHROMBIN TIME 11.2 sec (9.1-11.1)
[2018-02-22] VITALS (19 sets, daily range): BP systolic 106–136; BP diastolic 58–79
[2018-02-22] MEDS: IPRATROPIUM/ALBUTEROL 0.5-3(2.5)MG/3ML NEB HHN SCH ×6 (00:19→20:10)
[2018-02-22] MEDS: METRONIDAZOLE 500 MG PREMIX 100 ML IV SCH ×2 (04:11→19:59)
[2018-02-22] MEDS: AZTREONAM 2 GM in DEXT 5% WATER 100 ML IV SCH ×2 (04:11→19:52)
[2018-02-22] MEDS: INSULIN LISPRO 100 UNITS/ML SUBCUT SCH ×3 (05:26→18:00)
[2018-02-22] MEDS: BLOOD SUGAR DIAGNOSTIC STRIP TEST SCH ×3 (05:26→18:27)
[2018-02-22 06:36] LABS: CHLORIDE 106 mEq/L (98-107)
[2018-02-22 06:42] LABS: PHOSPHORUS 2.3 mg/dL (2.5-4.9)
[2018-02-22] MEDS ORDERED: MAGNESIUM 2 G PREMIX 50 ML IV ONE (08:00)
[2018-02-22 08:56] LABS: BASOPHILS % 0.5 % (0.0-2.0); EOSINOPHILS % 0.6 % (0.0-5.0); HEMATOCRIT. 24.3 % (36.0-48.0); HEMOGLOBIN. 7.6 g/dL (12.0-16.0); LYMPHOCYTES % 7.9 % (20.0-50.0); MEAN CORPUSCULAR HEMOGLOBIN 26.3 pg (28.0-32.0); MEAN CORPUSCULAR VOLUME 83.8 fL (81.0-99.0); MEAN PLATELET VOLUME 7.3 fl (7.4-10.4); MONOCYTES % 2.3 % (2.0-8.0); NEUTROPHILS % 88.7 % (40.0-76.0); PLATELET 719 x1000/uL (130-400)
[2018-02-22] MEDS: PANTOPRAZOLE SODIUM 40 MG/VIAL IV SCH (09:26)
[2018-02-22] MEDS: INSULIN GLARGINE UD 100 UNITS/ML SYR SUBCUT SCH ×2 (09:28→22:01)
[2018-02-22] MEDS ORDERED: SODIUM PHOS,M-BASIC-D-BASIC 10 MM in DEXT 5% WATER 246.6667 ML IV NR (09:30)
[2018-02-22] MEDS ORDERED: DEXT 5%/0.45% NACL 500ML 500 ML IV SCH (09:30)
[2018-02-22] MEDS ORDERED: MAGNESIUM SULFATE 2 GM in DEXTROSE 5% WATER 50 ML IV NR (10:00)
[2018-02-22] MEDS: MIDODRINE HCL 2.5MG TABLET GT SCH (10:01)
[2018-02-22] MEDS: VANCOMYCIN 1 G PREMIX 200 ML IV SCH (11:00)
[2018-02-22 13:35] LABS: BG BASE EXCESS -0.1 mmol/L (-2.0-2.0); BG CARBOXYHEMOGLOBIN 0.3 % (0.5-1.5); BG DEOXYHEMOGLOBIN 2.1 % (0.0-5.0); BG FRACTION INSPIRED OXYGEN 40; BG HCO3 ACT 23.5 mmol/L (22.0-26.0); BG METHEMOGLOBIN 0.3 % (0.0-1.5); BG OXYGEN SATURATION 97.9 % (92.0-98.5); BG OXYHEMOGLOBIN 97.3 % (94.0-97.0); BG PCO2 33.5 mmHg (35.0-45.0); BG PH 7.463 (7.350-7.450); BG PO2 107.2 mmHg (75.0-100.0); BG PRESSURE SUPPORT 8; BG SAMPLE SITE RIGHT RADIAL; BG TOTAL HEMOGLOBIN 8.2 g/dL (12.0-18.0); BG VENT MODE VENT - CPAP
[2018-02-22] MEDS: MIDODRINE HCL 5MG TABLET GT SCH ×2 (13:45→17:00)
[2018-02-23] VITALS (42 sets, daily range): BP systolic 100–143; BP diastolic 53–102
[2018-02-23] MEDS: BLOOD SUGAR DIAGNOSTIC STRIP TEST SCH ×5 (00:37→23:53)
[2018-02-23] MEDS: IPRATROPIUM/ALBUTEROL 0.5-3(2.5)MG/3ML NEB HHN SCH ×7 (00:58→23:50)
[2018-02-23] MEDS: AZTREONAM 2 GM in DEXT 5% WATER 100 ML IV SCH ×2 (03:33→16:32)
[2018-02-23] MEDS: METRONIDAZOLE 500 MG PREMIX 100 ML IV SCH ×3 (03:33→19:39)
[2018-02-23] MEDS: INSULIN LISPRO 100 UNITS/ML SUBCUT SCH ×5 (05:59→23:53)
[2018-02-23] MEDS: VERAPAMIL HCL 2.5 MG/1 ML 2ML VIAL IV PRN ×2 (06:43→12:45)
[2018-02-23 08:01] LABS: BG BASE EXCESS 3.8 mmol/L (-2.0-2.0); BG CARBOXYHEMOGLOBIN 0.2 % (0.5-1.5); BG DEOXYHEMOGLOBIN 2.8 % (0.0-5.0); BG HCO3 ACT 27.7 mmol/L (22.0-26.0); BG METHEMOGLOBIN 0.3 % (0.0-1.5); BG OXYGEN SATURATION 97.2 % (92.0-98.5); BG OXYHEMOGLOBIN 96.7 % (94.0-97.0); BG PCO2 39.1 mmHg (35.0-45.0); BG PH 7.468 (7.350-7.450); BG PO2 87.9 mmHg (75.0-100.0); BG SAMPLE SITE RIGHT RADIAL; BG TOTAL HEMOGLOBIN 9.4 g/dL (12.0-18.0); BG VENT MODE MASK - AEROSOL
[2018-02-23 08:07] LABS: HEMATOCRIT. 28.2 % (36.0-48.0); HEMOGLOBIN. 8.9 g/dL (12.0-16.0); MEAN CORPUSCULAR HEMOGLOBIN 26.4 pg (28.0-32.0); MEAN CORPUSCULAR VOLUME 84.1 fL (81.0-99.0); MEAN PLATELET VOLUME 7.3 fl (7.4-10.4); PLATELET 880 x1000/uL (130-400); RED BLOOD CELL COUNT 3.35 mill/uL (4.2-5.4); RED CELL DISTRIBUTION WIDTH 20.9 % (11.6-14.6)
[2018-02-23 08:27] LABS: CHLORIDE 107 mEq/L (98-107)
[2018-02-23 08:33] LABS: PHOSPHORUS 2.5 mg/dL (2.5-4.9)
[2018-02-23] MEDS: PANTOPRAZOLE SODIUM 40 MG/VIAL IV SCH (09:10)
[2018-02-23] MEDS: MIDODRINE HCL 5MG TABLET GT SCH ×3 (09:11→16:40)
[2018-02-23] MEDS: INSULIN GLARGINE UD 100 UNITS/ML SYR SUBCUT SCH ×2 (10:00→22:11)
[2018-02-23] MEDS: VANCOMYCIN 1 G PREMIX 200 ML IV SCH (10:38)
[2018-02-23 11:38] LABS: BG BASE EXCESS 4.2 mmol/L (-2.0-2.0); BG CARBOXYHEMOGLOBIN 0.3 % (0.5-1.5); BG DEOXYHEMOGLOBIN 12.2 % (0.0-5.0); BG FRACTION INSPIRED OXYGEN 60; BG HCO3 ACT 28.1 mmol/L (22.0-26.0); BG METHEMOGLOBIN 0.2 % (0.0-1.5); BG OXYGEN SATURATION 87.7 % (92.0-98.5); BG OXYHEMOGLOBIN 87.3 % (94.0-97.0); BG PCO2 39.1 mmHg (35.0-45.0); BG PH 7.474 (7.350-7.450); BG SAMPLE SITE RIGHT RADIAL; BG TOTAL HEMOGLOBIN 9.2 g/dL (12.0-18.0); BG VENT MODE MASK - AEROSOL
[2018-02-23 13:43] LABS: PLATELET ESTIMATE INCREASED
[2018-02-23] MEDS: DILTIAZEM HCL 30MG TABLET GT SCH ×2 (14:02→22:14)
[2018-02-23] MEDS ORDERED: POTASSIUM CHLORIDE 10MEQ TABLET SR PO SCH (14:45)
[2018-02-23] MEDS ORDERED: FUROSEMIDE 40MG/4ML VIAL IVP SCH (14:45)
[2018-02-23] MEDS: ACETYLCYSTEINE 100MG/ML 10% VIAL 4ML INH SCH ×3 (17:00→23:51)
[2018-02-24] VITALS (52 sets, daily range): BP systolic 85–131; BP diastolic 44–74
[2018-02-24] MEDS: METRONIDAZOLE 500 MG PREMIX 100 ML IV SCH ×3 (03:10→20:45)
[2018-02-24] MEDS: IPRATROPIUM/ALBUTEROL 0.5-3(2.5)MG/3ML NEB HHN SCH ×2 (04:25→16:08)
[2018-02-24] MEDS: ACETYLCYSTEINE 100MG/ML 10% VIAL 4ML INH SCH ×2 (04:25→16:08)
[2018-02-24] MEDS: AZTREONAM 2 GM in DEXT 5% WATER 100 ML IV SCH ×2 (04:52→17:10)
[2018-02-24] MEDS: BLOOD SUGAR DIAGNOSTIC STRIP TEST SCH ×3 (05:11→17:17)
[2018-02-24] MEDS: INSULIN LISPRO 100 UNITS/ML SUBCUT SCH ×3 (05:11→17:17)
[2018-02-24] MEDS: DILTIAZEM HCL 30MG TABLET GT SCH ×2 (05:11→20:45)
[2018-02-24 05:55] LABS: HEMATOCRIT. 24.9 % (36.0-48.0); HEMOGLOBIN. 7.8 g/dL (12.0-16.0); MEAN CORPUSCULAR HEMOGLOBIN 26.3 pg (28.0-32.0); MEAN CORPUSCULAR VOLUME 84.3 fL (81.0-99.0); MEAN PLATELET VOLUME 7.4 fl (7.4-10.4); PLATELET 860 x1000/uL (130-400); RED BLOOD CELL COUNT 2.96 mill/uL (4.2-5.4)
[2018-02-24] MEDS: VERAPAMIL HCL 2.5 MG/1 ML 2ML VIAL IV PRN (06:05)
[2018-02-24 06:37] LABS: CHLORIDE 107 mEq/L (98-107)
[2018-02-24] MEDS ORDERED: ESMOLOL 2500MG PREMIX 250 ML IV SCH (09:00)
[2018-02-24] MEDS: MIDODRINE HCL 5MG TABLET GT SCH ×4 (09:10→17:19)
[2018-02-24] MEDS: PANTOPRAZOLE SODIUM 40 MG/VIAL IV SCH (09:11)
[2018-02-24] MEDS: INSULIN GLARGINE UD 100 UNITS/ML SYR SUBCUT SCH ×2 (09:51→22:00)
[2018-02-24 11:09] LABS: BG BASE EXCESS 4.7 mmol/L (-2.0-2.0); BG CARBOXYHEMOGLOBIN 0.2 % (0.5-1.5); BG DEOXYHEMOGLOBIN 2.3 % (0.0-5.0); BG FRACTION INSPIRED OXYGEN 60; BG METHEMOGLOBIN 0.2 % (0.0-1.5); BG OXYGEN SATURATION 97.7 % (92.0-98.5); BG OXYHEMOGLOBIN 97.3 % (94.0-97.0); BG PH 7.457 (7.350-7.450); BG PO2 103.9 mmHg (75.0-100.0); BG SAMPLE SITE RIGHT BRACHIAL; BG VENT MODE MASK - AEROSOL
[2018-02-24] MEDS ORDERED: MAGNESIUM 1 G PREMIX 100 ML IV NR (13:15)
[2018-02-24] MEDS ORDERED: DILTIAZEM HCL 30MG TABLET GT SCH ×3 (13:45→18:00)
[2018-02-24 13:51] LABS: PLATELET ESTIMATE MARKEDLY INCREASED
[2018-02-24] MEDS ORDERED: FUROSEMIDE 40MG/4ML VIAL IVP NR (14:00)
[2018-02-24] MEDS: ACETAMINOPHEN 650MG/20.3ML UDC PO PRN (15:18)
[2018-02-24] MEDS: DEXTROSE 50% WATER 50ML SYRINGE IV PRN ×2 (17:20→22:40)
[2018-02-24 19:42] LABS: BG BASE EXCESS 5.1 mmol/L (-2.0-2.0); BG CARBOXYHEMOGLOBIN 0.3 % (0.5-1.5); BG DEOXYHEMOGLOBIN 3.5 % (0.0-5.0); BG FRACTION INSPIRED OXYGEN 80; BG HCO3 ACT 30.4 mmol/L (22.0-26.0); BG METHEMOGLOBIN 0.2 % (0.0-1.5); BG OXYGEN SATURATION 96.5 % (92.0-98.5); BG PCO2 48.8 mmHg (35.0-45.0); BG PH 7.412 (7.350-7.450); BG PO2 88.3 mmHg (75.0-100.0); BG SAMPLE SITE LEFT RADIAL; BG TOTAL HEMOGLOBIN 9.5 g/dL (12.0-18.0); BG VENT MODE MASK - AEROSOL
[2018-02-24 21:38] LABS: BG BASE EXCESS 6.4 mmol/L (-2.0-2.0); BG BILEVEL POS AIRWAY PRESSURE 15/5; BG FRACTION INSPIRED OXYGEN 60; BG HCO3 ACT 31.6 mmol/L (22.0-26.0); BG METHEMOGLOBIN 0.3 % (0.0-1.5); BG OXYHEMOGLOBIN 97.7 % (94.0-97.0); BG PCO2 49.2 mmHg (35.0-45.0); BG PH 7.426 (7.350-7.450); BG PO2 104.8 mmHg (75.0-100.0); BG SAMPLE SITE LEFT RADIAL; BG TOTAL HEMOGLOBIN 9.6 g/dL (12.0-18.0); BG VENT MODE MASK - BIPAP; BG VENT RATE 20 set
[2018-02-25] VITALS (135 sets, daily range): BP systolic 58–174; BP diastolic 33–123
[2018-02-25] MEDS: ALBUTEROL (0.083%) 2.5MG/3ML NEB HHN SCH ×6 (00:25→20:24)
[2018-02-25] MEDS: ACETYLCYSTEINE 100MG/ML 10% VIAL 4ML INH SCH ×3 (00:26→16:19)
[2018-02-25] MEDS: DILTIAZEM HCL 30MG TABLET GT SCH ×5 (00:30→23:42)
[2018-02-25 01:26] LABS: BG BASE EXCESS -2.9 mmol/L (-2.0-2.0); BG CARBOXYHEMOGLOBIN 0.1 % (0.5-1.5); BG DEOXYHEMOGLOBIN 11.7 % (0.0-5.0); BG FRACTION INSPIRED OXYGEN 60; BG HCO3 ACT 31.3 mmol/L (22.0-26.0); BG METHEMOGLOBIN 0.4 % (0.0-1.5); BG OXYGEN SATURATION 88.2 % (92.0-98.5); BG OXYHEMOGLOBIN 87.8 % (94.0-97.0); BG PCO2 130.5 mmHg (35.0-45.0); BG PH 6.998 (7.350-7.450); BG PO2 77.6 mmHg (75.0-100.0); BG SAMPLE SITE RIGHT RADIAL; BG VENT MODE MASK - BIPAP
[2018-02-25] MEDS: NOREPINEPHRINE 8 MG in DEXT 5% WATER 492 ML IV PRN (01:54)
[2018-02-25 05:04] LABS: BG BASE EXCESS 3.1 mmol/L (-2.0-2.0); BG CARBOXYHEMOGLOBIN 0.3 % (0.5-1.5); BG DEOXYHEMOGLOBIN 0.7 % (0.0-5.0); BG FRACTION INSPIRED OXYGEN 100; BG HCO3 ACT 24.1 mmol/L (22.0-26.0); BG METHEMOGLOBIN 0.4 % (0.0-1.5); BG OXYGEN SATURATION 99.3 % (92.0-98.5); BG OXYHEMOGLOBIN 98.6 % (94.0-97.0); BG PCO2 25.6 mmHg (35.0-45.0); BG PH 7.592 (7.350-7.450); BG PO2 192.4 mmHg (75.0-100.0); BG SAMPLE SITE RIGHT RADIAL; BG TIDAL VOLUME(mL) 500 mL; BG TOTAL HEMOGLOBIN 10.4 g/dL (12.0-18.0); BG VENT MODE VENT - A/C; BG VENT RATE 18 set
[2018-02-25] MEDS: BLOOD SUGAR DIAGNOSTIC STRIP TEST SCH ×5 (05:51→23:41)
[2018-02-25] MEDS: DEXTROSE 50% WATER 50ML SYRINGE IV PRN ×2 (05:55→09:17)
[2018-02-25] MEDS: INSULIN LISPRO 100 UNITS/ML SUBCUT SCH ×5 (05:59→23:41)
[2018-02-25 06:18] LABS: HEMATOCRIT. 26.8 % (36.0-48.0); HEMOGLOBIN. 8.8 g/dL (12.0-16.0); MEAN CORPUSCULAR HEMOGLOBIN 27.6 pg (28.0-32.0); MEAN CORPUSCULAR VOLUME 83.8 fL (81.0-99.0); MEAN PLATELET VOLUME 7.4 fl (7.4-10.4); PLATELET 865 x1000/uL (130-400); RED BLOOD CELL COUNT 3.19 mill/uL (4.2-5.4); RED CELL DISTRIBUTION WIDTH 19.6 % (11.6-14.6)
[2018-02-25 06:27] LABS: CHLORIDE 107 mEq/L (98-107)
[2018-02-25 09:19] LABS: PLATELET ESTIMATE MARKEDLY DECREASED
[2018-02-25] MEDS: PANTOPRAZOLE SODIUM 40 MG/VIAL IV SCH (09:42)
[2018-02-25] MEDS: INSULIN GLARGINE UD 100 UNITS/ML SYR SUBCUT SCH ×2 (10:00→23:07)
[2018-02-25] MEDS ORDERED: VANCOMYCIN 1250MG in DEXTROSE 5% WATER 250ML IV SCH (10:00)
[2018-02-25] MEDS: DEXT 5%/0.45% NACL KCL 20MEQ/L 1,000 ML IV SCH (10:14)
[2018-02-25 11:01] LABS: BG BASE EXCESS 3.1 mmol/L (-2.0-2.0); BG CARBOXYHEMOGLOBIN 0.3 % (0.5-1.5); BG DEOXYHEMOGLOBIN 0.9 % (0.0-5.0); BG HCO3 ACT 26.2 mmol/L (22.0-26.0); BG METHEMOGLOBIN 0.3 % (0.0-1.5); BG OXYGEN SATURATION 99.1 % (92.0-98.5); BG OXYHEMOGLOBIN 98.5 % (94.0-97.0); BG PCO2 34.2 mmHg (35.0-45.0); BG PH 7.502 (7.350-7.450); BG PO2 178.4 mmHg (75.0-100.0); BG SAMPLE SITE RIGHT RADIAL; BG TIDAL VOLUME(mL) 500 mL; BG TOTAL HEMOGLOBIN 9.7 g/dL (12.0-18.0); BG VENT MODE VENT - A/C; BG VENT RATE 14 set
[2018-02-25] MEDS: VANCOMYCIN 1 G PREMIX 200 ML IV SCH (11:23)
[2018-02-25] MEDS: MIDODRINE HCL 5MG TABLET GT SCH ×3 (12:21→17:40)
[2018-02-25] MEDS ORDERED: ETOMIDATE 2MG/ML 10ML VIAL IV ONE (14:41)
[2018-02-25] MEDS ORDERED: SUCCINYLCHOLINE CHLORIDE 200MG/10ML VIAL IV ONE (14:41)
[2018-02-25] MEDS ORDERED: SODIUM CHLORIDE 0.9% 10ML VIAL ONE (14:41)
[2018-02-25 20:27] LABS: CLARITY URINE TURBID (CLEAR); COLOR URINE YELLOW (YELLOW); KETONES URINE NEGATIVE (NEGATIVE); LEUKOCYTE ESTERASE URINE 3+ (NEGATIVE); NITRITE URINE NEGATIVE (NEGATIVE); OCCULT BLOOD URINE 1+ (NEGATIVE); PROTEIN URINE TRACE (NEGATIVE); SPECIFIC GRAVITY URINE 1.005 (1.005-1.030); UROBILINOGEN URINE 0.2 E.U./dL (0.2-1.0)
[2018-02-25] MEDS: METRONIDAZOLE 500 MG PREMIX 100 ML IV SCH (22:31)
[2018-02-25] MEDS: AZTREONAM 2 GM in DEXT 5% WATER 100 ML IV SCH (23:12)
[2018-02-26] VITALS (81 sets, daily range): BP systolic 98–131; BP diastolic 51–88
[2018-02-26] MEDS: ALBUTEROL (0.083%) 2.5MG/3ML NEB HHN SCH ×5 (00:25→15:58)
[2018-02-26] MEDS: ACETYLCYSTEINE 100MG/ML 10% VIAL 4ML INH SCH ×3 (00:25→15:58)
[2018-02-26] MEDS: VERAPAMIL HCL 2.5 MG/1 ML 2ML VIAL IV PRN (01:49)
[2018-02-26] MEDS: NOREPINEPHRINE 8 MG in DEXT 5% WATER 492 ML IV PRN (01:58)
[2018-02-26] MEDS: BLOOD SUGAR DIAGNOSTIC STRIP TEST SCH ×3 (05:41→18:25)
[2018-02-26] MEDS: DILTIAZEM HCL 30MG TABLET GT SCH ×4 (05:46→23:39)
[2018-02-26] MEDS: METRONIDAZOLE 500 MG PREMIX 100 ML IV SCH ×3 (05:46→23:38)
[2018-02-26] MEDS: ACETAMINOPHEN 650MG/20.3ML UDC PO PRN (05:47)
[2018-02-26] MEDS: DEXT 5%/0.45% NACL KCL 20MEQ/L 1,000 ML IV SCH (05:57)
[2018-02-26] MEDS: INSULIN LISPRO 100 UNITS/ML SUBCUT SCH ×3 (06:00→18:00)
[2018-02-26 06:01] LABS: HEMATOCRIT. 28.5 % (36.0-48.0); MEAN CORPUSCULAR HEMOGLOBIN 27.1 pg (28.0-32.0); MEAN PLATELET VOLUME 7.4 fl (7.4-10.4); PLATELET 844 x1000/uL (130-400); RED BLOOD CELL COUNT 3.32 mill/uL (4.2-5.4); RED CELL DISTRIBUTION WIDTH 20.1 % (11.6-14.6)
[2018-02-26 06:38] LABS: CHLORIDE 107 mEq/L (98-107)
[2018-02-26 07:55] LABS: PLATELET ESTIMATE MARKEDLY INCREASED
[2018-02-26 08:34] LABS: BG BASE EXCESS 3.7 mmol/L (-2.0-2.0); BG CARBOXYHEMOGLOBIN 0.1 % (0.5-1.5); BG DEOXYHEMOGLOBIN 0.6 % (0.0-5.0); BG FRACTION INSPIRED OXYGEN 65; BG HCO3 ACT 27.2 mmol/L (22.0-26.0); BG METHEMOGLOBIN 0.3 % (0.0-1.5); BG OXYGEN SATURATION 99.4 % (92.0-98.5); BG PCO2 36.6 mmHg (35.0-45.0); BG PH 7.489 (7.350-7.450); BG PO2 197.2 mmHg (75.0-100.0); BG SAMPLE SITE LEFT RADIAL; BG TIDAL VOLUME(mL) 500 mL; BG VENT MODE VENT - A/C; BG VENT RATE 10 set
[2018-02-26] MEDS: PANTOPRAZOLE SODIUM 40 MG/VIAL IV SCH (09:06)
[2018-02-26] MEDS: MIDODRINE HCL 5MG TABLET GT SCH ×3 (09:06→17:48)
[2018-02-26] MEDS: AZTREONAM 2 GM in DEXT 5% WATER 100 ML IV SCH ×2 (12:07→23:38)
[2018-02-26 14:30] LABS: BG BASE EXCESS 3.3 mmol/L (-2.0-2.0); BG CARBOXYHEMOGLOBIN 0.3 % (0.5-1.5); BG DEOXYHEMOGLOBIN 1.3 % (0.0-5.0); BG FRACTION INSPIRED OXYGEN 50; BG HCO3 ACT 26.9 mmol/L (22.0-26.0); BG METHEMOGLOBIN 0.3 % (0.0-1.5); BG OXYGEN SATURATION 98.7 % (92.0-98.5); BG OXYHEMOGLOBIN 98.1 % (94.0-97.0); BG PO2 136.5 mmHg (75.0-100.0); BG SAMPLE SITE RIGHT RADIAL; BG TIDAL VOLUME(mL) 500 mL; BG VENT MODE VENT - A/C; BG VENT RATE 8 set
[2018-02-26] MEDS: SODIUM HYPOCHLORITE 0.125% 473ML SOLUTION TOP SCH (21:00)
[2018-02-27] VITALS (52 sets, daily range): BP systolic 88–133; BP diastolic 47–73
[2018-02-27] MEDS: DEXTROSE 50% WATER 50ML SYRINGE IV PRN (01:03)
[2018-02-27 05:36] LABS: BASOPHILS % 0.5 % (0.0-2.0); EOSINOPHILS % 1.5 % (0.0-5.0); HEMATOCRIT. 26.9 % (36.0-48.0); HEMOGLOBIN. 8.5 g/dL (12.0-16.0); LYMPHOCYTES % 7.8 % (20.0-50.0); MEAN CORPUSCULAR HEMOGLOBIN 27.2 pg (28.0-32.0); MEAN CORPUSCULAR VOLUME 85.7 fL (81.0-99.0); MONOCYTES % 3.2 % (2.0-8.0); RED BLOOD CELL COUNT 3.14 mill/uL (4.2-5.4); RED CELL DISTRIBUTION WIDTH 19.9 % (11.6-14.6)
[2018-02-27] MEDS: ACETAMINOPHEN 650MG/20.3ML UDC PO PRN ×2 (05:41→10:52)
[2018-02-27] MEDS: METRONIDAZOLE 500 MG PREMIX 100 ML IV SCH ×3 (05:42→22:21)
[2018-02-27] MEDS: DILTIAZEM HCL 30MG TABLET GT SCH ×4 (05:42→23:46)
[2018-02-27] MEDS: INSULIN LISPRO 100 UNITS/ML SUBCUT SCH ×5 (05:42→23:47)
[2018-02-27] MEDS: BLOOD SUGAR DIAGNOSTIC STRIP TEST SCH ×5 (05:43→23:47)
[2018-02-27 05:45] LABS: CHLORIDE 107 mEq/L (98-107)
[2018-02-27] MEDS: NOREPINEPHRINE 8 MG in DEXT 5% WATER 492 ML IV PRN (07:18)
[2018-02-27 07:33] LABS: PLATELET 665 x1000/uL (130-400)
[2018-02-27 07:34] LABS: MEAN PLATELET VOLUME 7.7 fl (7.4-10.4)
[2018-02-27] MEDS ORDERED: FLUCONAZOLE 200MG/100ML PREMIX IV ONE (08:45)
[2018-02-27] MEDS: PANTOPRAZOLE SODIUM 40 MG/VIAL IV SCH (09:06)
[2018-02-27] MEDS: MIDODRINE HCL 5MG TABLET GT SCH ×3 (09:06→17:28)
[2018-02-27] MEDS: VANCOMYCIN 1 G PREMIX 200 ML IV SCH (09:07)
[2018-02-27] MEDS: SODIUM HYPOCHLORITE 0.125% 473ML SOLUTION TOP SCH ×2 (09:08→22:21)
[2018-02-27] MEDS ORDERED: INSULIN GLARGINE UD 100 UNITS/ML SYR SUBCUT SCH (10:00)
[2018-02-27] MEDS ORDERED: FLUCONAZOLE 200 MG/100ML BAG 100 ML IV NR (10:00)
[2018-02-27] MEDS: AZTREONAM 2 GM in DEXT 5% WATER 100 ML IV SCH ×2 (12:10→23:47)
[2018-02-28] VITALS (36 sets, daily range): BP systolic 90–129; BP diastolic 40–76
[2018-02-28] MEDS ORDERED: DEXT 5%/0.45% NACL 1000ML 1,000 ML IV PRN (01:15)
[2018-02-28] MEDS: METRONIDAZOLE 500 MG PREMIX 100 ML IV SCH ×3 (05:16→21:18)
[2018-02-28] MEDS: DILTIAZEM HCL 30MG TABLET GT SCH ×3 (05:16→17:41)
[2018-02-28] MEDS: BLOOD SUGAR DIAGNOSTIC STRIP TEST SCH ×3 (05:17→17:48)
[2018-02-28] MEDS: INSULIN LISPRO 100 UNITS/ML SUBCUT SCH ×3 (05:17→17:59)
[2018-02-28 06:10] LABS: BASOPHILS % 0.5 % (0.0-2.0); HEMATOCRIT. 26.8 % (36.0-48.0); HEMOGLOBIN. 8.4 g/dL (12.0-16.0); INR 1.1; LYMPHOCYTES % 9.7 % (20.0-50.0); MEAN CORPUSCULAR HEMOGLOBIN 26.9 pg (28.0-32.0); MEAN CORPUSCULAR VOLUME 85.4 fL (81.0-99.0); MEAN PLATELET VOLUME 7.2 fl (7.4-10.4); MONOCYTES % 4.7 % (2.0-8.0); NEUTROPHILS % 84.1 % (40.0-76.0); PLATELET 712 x1000/uL (130-400); PROTHROMBIN TIME 11.4 sec (9.1-11.1); RED BLOOD CELL COUNT 3.13 mill/uL (4.2-5.4); RED CELL DISTRIBUTION WIDTH 19.2 % (11.6-14.6)
[2018-02-28 06:52] LABS: CHLORIDE 104 mEq/L (98-107)
[2018-02-28 06:58] LABS: PHOSPHORUS 2.2 mg/dL (2.5-4.9)
[2018-02-28 07:43] LABS: BG BASE EXCESS 4.7 mmol/L (-2.0-2.0); BG CARBOXYHEMOGLOBIN 0.3 % (0.5-1.5); BG DEOXYHEMOGLOBIN 2.5 % (0.0-5.0); BG HCO3 ACT 27.9 mmol/L (22.0-26.0); BG OXYGEN SATURATION 97.5 % (92.0-98.5); BG OXYHEMOGLOBIN 97.2 % (94.0-97.0); BG PCO2 35.6 mmHg (35.0-45.0); BG PH 7.512 (7.350-7.450); BG PO2 91.7 mmHg (75.0-100.0); BG SAMPLE SITE RIGHT RADIAL; BG TIDAL VOLUME(mL) 500 mL; BG TOTAL HEMOGLOBIN 8.7 g/dL (12.0-18.0); BG VENT MODE VENT - A/C; BG VENT RATE 8 set
[2018-02-28] MEDS ORDERED: FLUCONAZOLE/NS(NEO) 2MG/ML IVPB IV SCH (08:45)
[2018-02-28] MEDS ORDERED: ROCURONIUM BROMIDE 10MG/ML VIAL 5ML IV ONE ×2 (08:48→09:40)
[2018-02-28] MEDS ORDERED: FENTANYL CITRATE/PF 50MCG/ML 2ML VIAL ONE (08:50)
[2018-02-28] MEDS: VANCOMYCIN 1 G PREMIX 200 ML IV SCH (09:11)
[2018-02-28] MEDS ORDERED: DEXT IV SCH (09:30)
[2018-02-28] MEDS ORDERED: POTASSIUM PHOS M BASIC D BASIC IV SCH (09:30)
[2018-02-28] MEDS ORDERED: NACL IV SCH (09:30)
[2018-02-28] MEDS ORDERED: LIDOCAINE HCL/EPINEPHRINE 1%-EPI 1:100,000 20 ML VIAL ONE (09:35)
[2018-02-28] MEDS ORDERED: FLUCONAZOLE 100MG/50ML in BAG IV SCH (10:00)
[2018-02-28] MEDS ORDERED: POTASSIUM PHOS,M-BASIC-D-BASIC 20 MMOL in DEXT 5% WATER 243.3333 ML IV NR (10:00)
[2018-02-28] MEDS ORDERED: PHENYLEPHRINE HCL 10 MG/ML 1ML (IV VIAL) IV ONE (10:01)
[2018-02-28] MEDS: VERAPAMIL HCL 2.5 MG/1 ML 2ML VIAL IV PRN (10:47)
[2018-02-28] MEDS: FLUCONAZOLE 200MG TABLET PO SCH (11:09)
[2018-02-28] MEDS: PANTOPRAZOLE SODIUM 40 MG/VIAL IV SCH (11:09)
[2018-02-28] MEDS: MIDODRINE HCL 5MG TABLET GT SCH ×3 (11:10→17:48)
[2018-02-28] MEDS: SODIUM HYPOCHLORITE 0.125% 473ML SOLUTION TOP SCH ×2 (11:12→21:28)
[2018-02-28] MEDS: AZTREONAM 2 GM in DEXT 5% WATER 100 ML IV SCH ×2 (12:39→22:33)
[2018-02-28 13:05] LABS: BG BASE EXCESS 2.3 mmol/L (-2.0-2.0); BG CARBOXYHEMOGLOBIN 0.1 % (0.5-1.5); BG DEOXYHEMOGLOBIN 2.2 % (0.0-5.0); BG HCO3 ACT 25.7 mmol/L (22.0-26.0); BG METHEMOGLOBIN 0.2 % (0.0-1.5); BG OXYGEN SATURATION 97.8 % (92.0-98.5); BG OXYHEMOGLOBIN 97.5 % (94.0-97.0); BG PCO2 35.2 mmHg (35.0-45.0); BG PH 7.481 (7.350-7.450); BG PO2 96.3 mmHg (75.0-100.0); BG SAMPLE SITE RIGHT RADIAL; BG TIDAL VOLUME(mL) 500 mL; BG TOTAL HEMOGLOBIN 9.8 g/dL (12.0-18.0); BG VENT MODE VENT - SIMV; BG VENT RATE 6 set
[2018-02-28] MEDS ORDERED: MAGNESIUM 2 G PREMIX 50 ML IV NR (18:00)
[2018-03-01] VITALS (33 sets, daily range): BP systolic 95–130; BP diastolic 48–82
[2018-03-01] MEDS: BLOOD SUGAR DIAGNOSTIC STRIP TEST SCH ×4 (00:18→17:00)
[2018-03-01] MEDS: INSULIN LISPRO 100 UNITS/ML SUBCUT SCH ×4 (00:23→17:59)
[2018-03-01] MEDS: VANCOMYCIN 1250MG in DEXTROSE 5% WATER 250ML IV SCH ×2 (00:23→17:58)
[2018-03-01] MEDS: VERAPAMIL HCL 2.5 MG/1 ML 2ML VIAL IV PRN (01:58)
[2018-03-01] MEDS: DILTIAZEM HCL 30MG TABLET GT SCH ×4 (06:00→17:58)
[2018-03-01 06:22] LABS: CHLORIDE 103 mEq/L (98-107)
[2018-03-01 06:27] LABS: BASOPHILS % 0.5 % (0.0-2.0); HEMATOCRIT. 27.1 % (36.0-48.0); HEMOGLOBIN. 8.5 g/dL (12.0-16.0); LYMPHOCYTES % 8.4 % (20.0-50.0); MEAN CORPUSCULAR HEMOGLOBIN 26.8 pg (28.0-32.0); MEAN CORPUSCULAR VOLUME 85.7 fL (81.0-99.0); MEAN PLATELET VOLUME 7.4 fl (7.4-10.4); MONOCYTES % 5.1 % (2.0-8.0); PLATELET 731 x1000/uL (130-400); RED BLOOD CELL COUNT 3.16 mill/uL (4.2-5.4); RED CELL DISTRIBUTION WIDTH 19.3 % (11.6-14.6)
[2018-03-01 06:29] LABS: PHOSPHORUS 2.6 mg/dL (2.5-4.9)
[2018-03-01] MEDS: METRONIDAZOLE 500 MG PREMIX 100 ML IV SCH ×3 (06:38→21:20)
[2018-03-01 07:36] LABS: BG BASE EXCESS 2.7 mmol/L (-2.0-2.0); BG CARBOXYHEMOGLOBIN 0.3 % (0.5-1.5); BG DEOXYHEMOGLOBIN 2.3 % (0.0-5.0); BG HCO3 ACT 26.7 mmol/L (22.0-26.0); BG METHEMOGLOBIN 0.2 % (0.0-1.5); BG OXYGEN SATURATION 97.7 % (92.0-98.5); BG OXYHEMOGLOBIN 97.2 % (94.0-97.0); BG PCO2 38.3 mmHg (35.0-45.0); BG PH 7.461 (7.350-7.450); BG PO2 99.7 mmHg (75.0-100.0); BG SAMPLE SITE RIGHT BRACHIAL; BG TIDAL VOLUME(mL) 500 mL; BG TOTAL HEMOGLOBIN 8.3 g/dL (12.0-18.0); BG VENT MODE VENT - SIMV; BG VENT RATE 6 set
[2018-03-01] MEDS: FLUCONAZOLE 200MG TABLET PO SCH (09:39)
[2018-03-01] MEDS: PANTOPRAZOLE SODIUM 40 MG/VIAL IV SCH (09:39)
[2018-03-01] MEDS: MIDODRINE HCL 5MG TABLET GT SCH ×3 (09:40→16:41)
[2018-03-01] MEDS: SODIUM HYPOCHLORITE 0.125% 473ML SOLUTION TOP SCH ×2 (09:40→20:31)
[2018-03-01] MEDS ORDERED: IPRATROPIUM/ALBUTEROL 0.5-3(2.5)MG/3ML NEB HHN PRN (10:15)
[2018-03-01] MEDS: DEXT 5%/0.45% NACL 1000ML 1,000 ML IV SCH (10:27)
[2018-03-01] MEDS: AZTREONAM 2 GM in DEXT 5% WATER 100 ML IV SCH ×2 (11:31→22:36)
[2018-03-01] MEDS: IPRATROPIUM/ALBUTEROL 0.5-3(2.5)MG/3ML NEB HHN SCH ×3 (12:44→20:23)
[2018-03-02] VITALS (9 sets, daily range): BP systolic 98–133; BP diastolic 54–75
[2018-03-02] MEDS: BLOOD SUGAR DIAGNOSTIC STRIP TEST SCH ×4 (00:38→17:24)
[2018-03-02] MEDS: INSULIN LISPRO 100 UNITS/ML SUBCUT SCH ×4 (00:41→17:45)
[2018-03-02] MEDS: IPRATROPIUM/ALBUTEROL 0.5-3(2.5)MG/3ML NEB HHN SCH ×4 (01:04→12:16)
[2018-03-02] MEDS: METRONIDAZOLE 500 MG PREMIX 100 ML IV SCH ×2 (05:57→13:12)
[2018-03-02] MEDS: DILTIAZEM HCL 30MG TABLET GT SCH ×4 (06:00→17:44)
[2018-03-02 06:36] LABS: BASOPHILS % 0.6 % (0.0-2.0); EOSINOPHILS % 1.5 % (0.0-5.0); HEMATOCRIT. 23.1 % (36.0-48.0); HEMOGLOBIN. 7.6 g/dL (12.0-16.0); LYMPHOCYTES % 10.5 % (20.0-50.0); MEAN CORPUSCULAR HEMOGLOBIN 27.9 pg (28.0-32.0); MEAN CORPUSCULAR VOLUME 84.7 fL (81.0-99.0); MEAN PLATELET VOLUME 7.4 fl (7.4-10.4); MONOCYTES % 6.9 % (2.0-8.0); NEUTROPHILS % 80.5 % (40.0-76.0); PLATELET 647 x1000/uL (130-400); RED BLOOD CELL COUNT 2.73 mill/uL (4.2-5.4)
[2018-03-02 07:05] LABS: CHLORIDE 105 mEq/L (98-107)
[2018-03-02] MEDS: SODIUM HYPOCHLORITE 0.125% 473ML SOLUTION TOP SCH (08:29)
[2018-03-02] MEDS: PANTOPRAZOLE SODIUM 40 MG/VIAL IV SCH (08:29)
[2018-03-02] MEDS: MIDODRINE HCL 5MG TABLET GT SCH ×3 (08:29→17:00)
[2018-03-02] MEDS: FLUCONAZOLE 200MG TABLET PO SCH (08:29)
[2018-03-02] MEDS: DEXT 5%/0.45% NACL 1000ML 1,000 ML IV SCH (10:58)
[2018-03-02] MEDS: AZTREONAM 2 GM in DEXT 5% WATER 100 ML IV SCH (11:02)
[2018-03-02] MEDS: VANCOMYCIN 1250MG in DEXTROSE 5% WATER 250ML IV SCH (11:02)
[2018-03-02] MEDS: POTASSIUM PHOS,M-BASIC-D-BASIC 20 MMOL in DEXT 5% WATER 243.3333 ML IV NR ×2 (12:48→13:12)
== END 2018-03-02 19:00 | DRG 3 ==
LOC: ER 10:02 → MICUNO 11:34 → EDBEDREQTM 11:38 → EDBEDREQ 11:38 → ENRESERV 11:58 → CVICU 02-12 20:15 → 3WST 02-16 20:15 → CVICU 02-17 10:00 → 5EST 03-01 14:30
PROVIDERS: ADMIT Internal Medicine Geriatric Medicine; ATTEND Internal Medicine Geriatric Medicine
PROC: 5A1955Z Respiratory Ventilation, Greater than 96 Consecutive Hours (ICD-10-PCS; principal; 2018-02-10)
PROC: 0BH17EZ Insertion of Endotracheal Airway into Trachea, Via Natural or Artificial Opening (ICD-10-PCS; 2018-02-10)
PROC: 06HY33Z Insertion of Infusion Device into Lower Vein, Percutaneous Approach (ICD-10-PCS; 2018-02-10)
PROC: B54MZZA Ultrasonography of Right Upper Extremity Veins, Guidance (ICD-10-PCS; 2018-02-15)
PROC: 05HY33Z Insertion of Infusion Device into Upper Vein, Percutaneous Approach (ICD-10-PCS; 2018-02-15)
PROC: 0BH17EZ Insertion of Endotracheal Airway into Trachea, Via Natural or Artificial Opening (ICD-10-PCS; 2018-02-17)
PROC: 5A1955Z Respiratory Ventilation, Greater than 96 Consecutive Hours (ICD-10-PCS; 2018-02-17)
PROC: 30243N1 Transfusion of Nonautologous Red Blood Cells into Central Vein, Percutaneous Approach (ICD-10-PCS; 2018-02-24)
PROC: 5A09357 Assistance with Respiratory Ventilation, Less than 24 Consecutive Hours, Continuous Positive Airway Pressure (ICD-10-PCS; 2018-02-24)
PROC: 0BH17EZ Insertion of Endotracheal Airway into Trachea, Via Natural or Artificial Opening (ICD-10-PCS; 2018-02-25)
PROC: 5A1955Z Respiratory Ventilation, Greater than 96 Consecutive Hours (ICD-10-PCS; 2018-02-25)
PROC: 0KBR0ZZ Excision of Left Upper Leg Muscle, Open Approach (ICD-10-PCS; 2018-02-26)
PROC: 0KBQ0ZZ Excision of Right Upper Leg Muscle, Open Approach (ICD-10-PCS; 2018-02-26)
PROC: 0QB10ZZ Excision of Sacrum, Open Approach (ICD-10-PCS; 2018-02-26)
PROC: 0B110F4 Bypass Trachea to Cutaneous with Tracheostomy Device, Open Approach (ICD-10-PCS; 2018-02-28)
DX: A41.9 Sepsis, unspecified organism (principal); J69.0 Pneumonitis due to inhalation of food and vomit; R65.21 Severe sepsis with septic shock; G92 Toxic encephalopathy; E43 Unspecified severe protein-calorie malnutrition; J96.02 Acute respiratory failure with hypercapnia; L89.154 Pressure ulcer of sacral region, stage 4; L89.214 Pressure ulcer of right hip, stage 4; L89.224 Pressure ulcer of left hip, stage 4; N17.0 Acute kidney failure with tubular necrosis; N39.0 Urinary tract infection, site not specified; E87.0 Hyperosmolality and hypernatremia; B49 Unspecified mycosis; D68.9 Coagulation defect, unspecified; M48.02 Spinal stenosis, cervical region; D64.9 Anemia, unspecified; E87.6 Hypokalemia; E11.65 Type 2 diabetes mellitus with hyperglycemia; I50.9 Heart failure, unspecified; L89.810 Pressure ulcer of head, unstageable; I11.0 Hypertensive heart disease with heart failure; L89.890 Pressure ulcer of other site, unstageable; E86.1 Hypovolemia; E86.0 Dehydration; E11.42 Type 2 diabetes mellitus with diabetic polyneuropathy; E78.00 Pure hypercholesterolemia, unspecified; E78.5 Hyperlipidemia, unspecified; E83.39 Other disorders of phosphorus metabolism; E83.42 Hypomagnesemia; E87.5 Hyperkalemia; E87.8 Other disorders of electrolyte and fluid balance, not elsewhere classified; F03.90 Unspecified dementia, unspecified severity, without behavioral disturbance, psychotic disturbance, mood disturbance, and anxiety; F41.9 Anxiety disorder, unspecified; G40.909 Epilepsy, unspecified, not intractable, without status epilepticus; G89.4 Chronic pain syndrome; K21.9 Gastro-esophageal reflux disease without esophagitis; K59.09 Other constipation; M79.7 Fibromyalgia; M19.90 Unspecified osteoarthritis, unspecified site; Z79.4 Long term (current) use of insulin; Z87.01 Personal history of pneumonia (recurrent); Z90.710 Acquired absence of both cervix and uterus; Z79.899 Other long term (current) drug therapy; Z91.19 Patient's noncompliance with other medical treatment and regimen; Z93.1 Gastrostomy status; Z86.73 Personal history of transient ischemic attack (TIA), and cerebral infarction without residual deficits; Z88.0 Allergy status to penicillin; Z88.1 Allergy status to other antibiotic agents; Z88.2 Allergy status to sulfonamides; Z88.8 Allergy status to other drugs, medicaments and biological substances; Z91.040 Latex allergy status
CPT/HCPCS: 31500; 36415; 36556; 36569; 36600; 70450; 71045; 72125; 76937; 80048; 80053; 80061; 80076; 80202; 80305; 81003; 82010; 82140; 82270; 82375; 82550; 82553; 82805; 82962; 83036; 83540; 83550; 83605; 83690; 83735; 83880; 84100; 84443; 84478; 84484; 85014; 85018; 85025; 85379; 85610; 85651; 85730; 86140; 86850; 86900; 86920; 87040; 87070; 87077; 87086; 87106; 87186; 87804; 93005; 93306; 93970; 94002; 94003; 94640; 94667; 96365; 96367; 96375; 97162; 99291; A4216; C1725; C9113; G0482; J0330; J1450; J1815; J1940; J1956; J2370; J2704; J3010; J3370; J3475; J3490; J7030; J7040; J7050; J7060; J7070; J7608; J7611; J7620; P9016; A4315